=== PATIENT | male | born 1965 | race Caucasian/White ===

== ENCOUNTER 2016-08-21 08:44 | Emergency (ER) | payer BC ==
[~2016-08-21] VITALS: Ht 180.3 cm; Wt 81.7 kg
[2016-08-21] MEDS ORDERED: LISINOPRIL20 MG PO (08:59)
[2016-08-21] MEDS ORDERED: LANSOPRAZOLE30 MG PO (08:59)
[2016-08-21] MEDS ORDERED: FLAGYL500 MG PO (10:06)
== END 2016-08-21 10:24 | disposition home or self-care (01) ==
LOC: ED 08:44
DX: R19.7 Diarrhea, unspecified (principal); E87.6 Hypokalemia; I10 Essential (primary) hypertension; Z79.899 Other long term (current) drug therapy
CPT/HCPCS: 80053; 81001; 85025; 96361; 96374; 96375; 99283; J1170; J2405; J7030

== ENCOUNTER 2019-01-15 11:59 | Day surgery (SDC) | payer BC ==
[~2019-01-15] VITALS: Ht 177.8 cm; Wt 83.9 kg
[~2019-01-15 11:59] MED LIST: FLAGYL500 MG PO; LANSOPRAZOLE30 MG PO; LISINOPRIL20 MG PO
--- NOTE | 2019-01-15 14:33 | NUR ---
01/15/19 1433 Monse Tristan 1430-PATIENT ARRIVED TO PACU ON 3L NC PLACED ON 2L NC REACTIVE TO VOICE OPENING EYES VERY DROWSY BACK TO SLEEP. RR EVEN. LAYING LEFT LATERAL. ENCOURAGED TO PASS GAS. IVF INFUSING.
--- NOTE | 2019-01-15 20:17 | OR ---
[facility] [address] [place], [place] [address] Signed DATE OF OPERATION: 01/15/2019 SURGEON: Anand Molina MD PREOPERATIVE DIAGNOSIS: Colon screening. POSTOPERATIVE DIAGNOSIS: Diverticular changes in sigmoid. No polyps. PROCEDURE: Total colonoscopy to cecum. ANESTHESIA: Intravenous sedation, fentanyl 200 mcg, Versed 9 mg. 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 He is a patient of Dr. Posada. On the basis of his age, he is recommended to undergo screening colonoscopy. He has no family history of colon cancer and no symptoms of bleeding, diarrhea, or constipation. He understands the risks of whole colonoscopy including but not limited to bleeding, infection, and perforation and wished to proceed. FINDINGS: The prep was excellent. Complete colonoscopy was undertaken to the cecum without question. He had several diverticula of the sigmoid, but no polyps or colitis. DESCRIPTION OF PROCEDURE: The patient was brought to the endoscopy suite and placed in lateral decubitus position, given intravenous sedation to the point of slurred speech and nystagmus. Digital rectal examination was normal. Olympus video colonoscope was passed in the rectum and manipulated throughout the colon noting diverticular change of the sigmoid. The scope was advanced ultimately to the cecum as identified by the ileocecal valve and the appendiceal orifice. The scope was withdrawn from that point. Examination throughout undertaken showed no sign of colitis and no polyps, only diverticular changes of the sigmoid colon. Retroflexed view of the rectum was normal. The scope was straightened, withdrawn, removed, and the patient was taken to recovery room in good condition. Electronically Signed By: ANAND MOLINA MD 01/15/192016 PATIENT NAME: VINCENT WILHELM OPERATIVE REPORT DATE OF : 69 REPORT #: [id number] PHYSICIAN: ANAND MOLINA MD PCP: LILIAM POSADA MD REPORT IS CONFIDENTIAL AND NOT TO BE RELEASED WITHOUT AUTHORIZATION [facility] [address] [place], [place] [address] Signed CONCLUDING DIAGNOSIS: Diverticular changes in sigmoid, otherwise normal. PLAN: Recommend repeat colonoscopy in 10 years. We would recommend high-fiber diet for colon health otherwise. He will return to the ongoing care of Dr. Posada. MD SHARON Reynoso/MODL /[id number] cc: Liliam Posada MD Copies: LILIAM POSADA MD ~ Electronically Signed By: ANAND MOLINA MD 01/15/192016 PATIENT NAME: VINCENT WILHELM OPERATIVE REPORT DATE OF : 69 REPORT #: [id number] PHYSICIAN: ANAND MOLINA MD PCP: LILIAM POSADA MD REPORT IS CONFIDENTIAL AND NOT TO BE RELEASED WITHOUT AUTHORIZATION
== END 2019-01-15 15:10 | disposition home or self-care (01) ==
LOC: OPS 11:59 → DS 12:02 → OPS 13:00 → DS 13:00 → OPS 15:10
PROVIDERS: Surgery
PROC: 0DJD8ZZ Inspection of Lower Intestinal Tract, Via Natural or Artificial Opening Endoscopic (ICD-10-PCS; principal; 2019-01-15 13:00)
DX: Z12.11 Encounter for screening for malignant neoplasm of colon (principal); K57.30 Diverticulosis of large intestine without perforation or abscess without bleeding; I10 Essential (primary) hypertension; K21.0 Gastro-esophageal reflux disease with esophagitis
CPT/HCPCS: 99153; G0500; J2250; J3010; J7121

== ENCOUNTER 2019-03-26 12:16 | Observation (INO) | payer OTHER ==
[~2019-03-26] VITALS: Ht 177.8 cm; Wt 83.6 kg
--- NOTE | 2019-03-26 16:59 | NUR ---
PT ADMITTED LATE THIS SHIFT. HE HAS REPORTED NO PAIN AT REST SINCE ADMIT, INCREASED PAIN WITH AMBULATION TO BATHROOM. PT ON ROOM, ALERT AND ORIETNED. EQUAL LUNG SOUNDS BILATERAL. V/S STABLE.
--- NOTE | 2019-03-26 19:53 | NUR ---
BEDSIDE REPORT RECEIVED FROM PEDRO DIAZ. pt AWAKE, RESTING IN BED. DENIES PAIN AT REST. SCDS APPLIED. CALL LIGHT IN REACH. IVF INFUSING WNL ORDERED.
--- NOTE | 2019-03-26 20:55 | NUR ---
ROUNDED CHARGE. PATIENT IS RESTING IN BED WATCHING TV. PATIENT DENIES ANY NEEDS. CALL CONSTANTINE MOLINA.
--- NOTE | 2019-03-26 22:05 | NUR ---
pt ASSESSMENT COMPLETE. LUNG SOUNDS CLEAR THROUGHOUT ALL LOBES. NO BRUISING OR SKIN BREAKDOWN NOTED ON ABDOMEN. SPO2 WNL ON RA. IV SITES FLUSHED WNL, IVF INFUSING ORDERED. SCDS OFF PER pt REFUSAL. SBA TO RESTROOM FOR VOID, TEA COLORED URINE. pt BACK IN BED. CALL LIGHT IN REACH.
--- NOTE | 2019-03-27 00:53 | NUR ---
pt RESTING IN BED WITH EYES CLOSED. SPO2 WNL ON RA, CPOX IN PLACE. LIGHTS OFF IN ROOM.
--- NOTE | 2019-03-27 02:04 | NUR ---
pt AWAKENS TO RNS ENTERING ROOM. VSS. IVF INFUSING WNL ORDERED. ASSESSMENT COMPLETE. LUNG SOUNDS CLEAR THROUGHOUT ALL LOBES. SPO2 WNL ON RA. CALL LIGHT IN REACH.
--- NOTE | 2019-03-27 06:03 | NUR ---
pt RESTING IN BED AWAKE. VSS. RATES PAIN 4/10 AT THIS TIME, PRN TYLENOL AND IBUPROFEN ADMINISTERED. SBA TO RESTROOM. pt VERY PAINFUL WITH GETTING OUT OF BED, AMBULATING. STOPPING ABRUPTLY. C/O PAIN MOSTLY IN LOWER BACK. OFFERED TO WALK HALLWAY W pt, UNABLE TO CONTINUE DUE TO PAIN. PRN DILAUDID 4MG ADMINISTERED FOR INCREASING PAIN. pt BACK IN BED. WARM PACKS PROVIDED FOR PAIN. CALL LIGHT IN REACH. IVF INFUSING WNL.
--- NOTE | 2019-03-27 07:48 | NUR ---
X-RAY IN TO DO MORNING CHEST X-RAY.
--- NOTE | 2019-03-27 08:01 | NUR ---
MORNING ASSESSMENT COMPLETED. PT RATED HIS PAIN 1 OUT OF 10. NO NAUSEA. ENCOURAGE PT TO STAY HYDRATED AFTER HE IS DISCHARGED HOME. PT DENIES OTHER NEEDS AT THIS TIME.
--- NOTE | 2019-03-27 09:25 | NUR ---
THE STUDENT RN OBTAINED THE FOLLOWING I&O. VITAL SIGNS DONE BY RN
--- NOTE | 2019-03-27 10:08 | NUR ---
PATIENT DISCONNECTED FROM PULSE OX, SATS ARE CONTINUALLY 96-97% ON ROOM AIR. PATIENT SALINE LOCKED AT THIS TIME TO AMBULATE AROUND ROOM. ENCOURAGED PATIENT TO INTAKE MORE FLUIDS. PATIENT REPORTS MINIMAL DISCOMFORT FROM RIBS.
[2019-03-27] MEDS ORDERED: IBUPROFEN600 MG PO (11:42)
[2019-03-27] MEDS ORDERED: TYLENOL EXTRA500 MG PO (11:42)
--- NOTE | 2019-03-27 11:43 | NUR ---
DR. MOLINA IN TO SEE PATIENT, PATIENT TO DISCHARGE HOME TODAY. VITALS WITHIN NORMAL LIMITS. X2 IV'S D/C'D WITH CATHETERS INTACT.
--- NOTE | 2019-03-27 11:44 | HP ---
[facility] [address] [place], [place] [address] Signed ADMISSION DATE: 03/26/2019 REASON FOR ADMISSION: Rib fractures 3 through 6 posteriorly related to falling off horse. 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 He is well known to me from the past having undergone colonoscopy on January 15, 2019. Today, he was riding his horse. The horse reared up and threw him off onto a hard flat surface. This resulted in a fair amount of posterior thoracic pain on the left side. He had some scrapes on his face and neck as well. He was brought to the emergency room by private vehicle and evaluated thoroughly by Dr. Kaye. His evaluation included physical exam showing no distinct injury other than tenderness to the left posterior thoracic area. Chest x-ray showed no evidence of trauma or pneumothorax. Abdominal and pelvic CT and chest CT showed left 3rd through 6th posterior rib fractures without sign of pneumothorax, hemothorax, or other issue. Cervical spine CT scan showed no evidence of trauma, but only degenerative disk disease and spondylosis, and a head CT was negative as well. He is admitted for pain control primarily, anticipating no likelihood of progression of disease. PAST MEDICAL HISTORY: Significant for chronic neck and back pain from the past. He does not smoke. He does have hypertension. He has no known drug allergies. He does have symptoms of reflux from time to time. MEDICATIONS: At admission include lisinopril 20 mg p.o. daily as well as lansoprazole 30 mg daily. REVIEW OF SYSTEMS: His pain is mostly in left posterior thorax and mostly with moving. He has no shortness of breath or dyspnea in any way. He denies any hematemesis, hemoptysis, or blood per rectum. He is hungry. He has no neck pain other than that which he has had previously. He notes he had no loss of consciousness with the accident. PHYSICAL EXAMINATION: GENERAL: A very healthy-appearing white man, who looks to be in no distress at this Electronically Signed By: ANAND MOLINA MD 03/27/19 1144 PATIENT NAME: VINCENT WILHELM HISTORY AND PHYSICAL DATE OF : 69 REPORT #: [id number] PHYSICIAN: ANAND MOLINA MD PCP: LILIAM POSADA MD REPORT IS CONFIDENTIAL AND NOT TO BE RELEASED WITHOUT AUTHORIZATION [facility] [address] [place], [place] [address] Signed time. VITAL SIGNS: Blood pressure was 114/67, pulse 99, temperature 98.4. NECK: Shows no thyromegaly or cervical adenopathy. Trachea is midline. He has no jugular venous distention. Clavicles are not deformed. CHEST: Palpation of the chest shows tenderness in the posterior aspect on the left, at the lower aspect of the chest wall actually. Shows no ecchymosis, no crepitus. ABDOMEN: Flat, soft, and nontender. EXTREMITIES: Show no angulation deformity or edema. NEUROLOGIC: Shows extraocular eye movements normal. Moves upper extremities and lower extremities without impediment. IMAGING DATA: I have reviewed his imaging studies including the chest CT and abdominal CT in great detail. The other spine studies and reports were reviewed as well. I am unable to easily discern the fractures in the ribs, left 3 through 6 posteriorly, but see no sign of parenchymal injury or pneumothorax or hemothorax. ASSESSMENT: The patient has suffered a fall from a horse on the ground, suffering rib fractures 3 through 6. Apparently, this is not his first episode of rib fractures related to falling off horse. He does have minor scrape on his left face not previously mentioned, but no sign of cranial nerve injury, soft tissue laceration, or anything of that sort. We will outline the plan of pain control for him to include oral analgesics and to include opiates if necessary. He wants to avoid them if possible understandably and that is most likely. Probably, he will be able to be discharged tomorrow, we will see how he is doing. Chest x-ray will be obtained in the morning. Given his high level of functionality at this time, regular diet is reasonable for him. We will initiate his usual medications also. Anand Molina MD /MODL /[id number] cc: Liliam Posada MD Electronically Signed By: AANND MOLINA MD 03/27/19 1144 PATIENT NAME: VINCENT WILHLEM HISTORY AND PHYSICAL DATE OF : 69 REPORT #: [id number] PHYSICIAN: ANAND MOLINA MD PCP: LILIAM POSADA MD REPORT IS CONFIDENTIAL AND NOT TO BE RELEASED WITHOUT AUTHORIZATION [address] [address] Signed Eduar Kaye MD Copies: LILIAM POSADA MD, MICHAEL MD ~ Electronically Signed By: ANAND MOLINA MD 03/27/19 1144 PATIENT NAME: VINCENT WILHELM HISTORY AND PHYSICAL DATE OF : 69 REPORT #: [id number] PHYSICIAN: ANAND MOLINA MD PCP: LILIAM POSADA MD REPORT IS CONFIDENTIAL AND NOT TO BE RELEASED WITHOUT AUTHORIZATION
--- NOTE | 2019-03-27 12:09 | NUR ---
PATIENT DISCHARGE AND AMBULATED TO FRONT DOOR WITH SPOUSE.
--- NOTE | 2019-03-27 13:15 | NUR ---
PT DRESSED, SITTING ON SIDE OF BED, IN RM WAITING FOR C. STAFF COMING IN AND OUT TO GET DC FINISHED. PT REQUESTED PRAYER, WILL FOLLOW NEEDED
== END 2019-03-27 12:05 | disposition home or self-care (01) ==
LOC: ED 12:16 → MS 12:18
PROVIDERS: ADMIT Surgery
DX: S22.42XA Multiple fractures of ribs, left side, initial encounter for closed fracture (principal); I10 Essential (primary) hypertension; K21.9 Gastro-esophageal reflux disease without esophagitis; V80.010A Animal-rider injured by fall from or being thrown from horse in noncollision accident, initial encounter; Z79.899 Other long term (current) drug therapy
CPT/HCPCS: 70450; 71045; 71260; 72125; 74177; 80048; 80053; 82150; 82550; 83690; 85025; 86850; 86900; 86901; 90471; 90715; 94762; 96376; 99285-25; A9270; G0378; G0480; J1170; J1885; J2405; J7121; Q9967

== ENCOUNTER 2021-01-28 20:37 | Emergency (ER) | payer OTHER ==
[~2021-01-28] VITALS: Ht 177.8 cm; Wt 89.9 kg
[~2021-01-28 20:37] MED LIST changes: +IBUPROFEN600 MG PO; +TYLENOL EXTRA500 MG PO
[2021-01-28] MEDS ORDERED: AUGMENTIN 875-1 EACH PO (22:55)
== END 2021-01-28 23:24 | disposition home or self-care (01) ==
LOC: ED 20:37
DX: S01.551A Open bite of lip, initial encounter (principal); W54.0XXA Bitten by dog, initial encounter; I10 Essential (primary) hypertension; Z79.899 Other long term (current) drug therapy
CPT/HCPCS: 12011; 99283-25